=== PATIENT | female | born 1995 ===

== ENCOUNTER 2023-12-05 15:40 | Outpatient (CLI) | payer OTHER ==
[2023-12-05 17:14] LABS: COL ADP 91 SECONDS (56-102)
[2023-12-05 17:16] LABS: COL EPI >300 SECONDS (82-175)
== END 2023-12-05 15:41 | disposition home or self-care (01) ==
LOC: LAB 15:40
PROVIDERS: ATTEND Internal Medicine Hematology & Oncology
DX: D69.1 Qualitative platelet defects (principal)